=== PATIENT | female | born 1965 | race Caucasian/White ===

== ENCOUNTER → 2016-08-11 | Outpatient (CLI) | payer BC ==
[~2016-08-11] MED LIST: CITA40TA12 PO; GABA1CAP5 PO; NAPR1TAB9 PO; OXYC7.5T65 PO
--- NOTE | 2016-08-11 08:39 | DIAGNOSTIC IMAGING REPORT ---
CHEST 2 VIEWS ROUTINE CLINICAL HISTORY: LOW K,LOW CALCIUM,LOW MAGNESIUM, pneumonia follow up COMPARISON STUDY: No previous studies for comparison. FINDINGS: The cardiac and mediastinal contours are normal. There is no evidence of focal pulmonary consolidation. There is no evidence of failure. No pleural effusions are visualized.[ IMPRESSION: No active disease in the chest. Electronically signed by: Sanjay Adams M.D. 08/11/2016 8:37 AM Dictated Date/Time: 08/11/2016 8:28 AM
[2016-08-11 10:23] LABS: BLOOD UREA NITROGEN 15 mg/dl (7-18); CREATININE 0.77 mg/dl (0.60-1.20); GLUCOSE 108 mg/dl (70-99)
[2016-08-11 10:24] LABS: ALT/SGPT 21 U/L (12-78); BUN/CREATININE RATIO 19.4 (10-20); CALCIUM 9.2 mg/dl (8.5-10.1); CARBON DIOXIDE 25 mmol/L (21-32); CHLORIDE 105 mmol/L (98-107); MAGNESIUM 2.2 mg/dl (1.8-2.4); POTASSIUM 4.1 mmol/L (3.5-5.1); SODIUM 140 mmol/L (136-145)
[2016-08-11 10:29] LABS: ALB/GLOB RATIO 1.4 (0.9-2); ALKALINE PHOSPHATASE 68 U/L (45-117); AST/SGOT 9 U/L (15-37)
== END | disposition home or self-care (01) ==
LOC: C.RAD 08:02
PROVIDERS: ATTEND Family Medicine Adult Medicine
DX: E87.6 Hypokalemia (principal); E83.51 Hypocalcemia; E83.42 Hypomagnesemia